=== PATIENT | male | born 1985 | race Caucasian/White ===

== ENCOUNTER 2017-04-04 01:51 | Emergency (ER) | payer MEDICAID, OTHER ==
[~2017-04-04] VITALS: Ht 182.9 cm; Wt 95.0 kg
[2017-04-04 01:55] VITALS: Ht 182.9 cm; Wt 95.0 kg
[2017-04-04] MEDS ORDERED: KETOROLAC 60 MG INJ IM STA (02:51)
[2017-04-04] MEDS ORDERED: CLINDAMYCIN 300 MG INJ IM ONE (03:00)
--- NOTE | 2017-04-04 03:06 | ERD ---
ER Documentation Chief Complaint Chief Complaint c/o bilateral leg abcess with swelling and drainage x 2 wks. HPI 31-year-old male presents here to emergency department for complaints of bilateral lower leg redness and swelling that started 2 weeks ago. Patient uses drugs, has history of MRSA infection. Patient's complaint of pain throbbing pain,6/10 scale, as was upon touching the area. Patient denies any fever chills. Patient denies any numbness or tingling. Patient admits to using drugs. ROS All systems reviewed and are negative except as per history of present illness. Medications Home Meds Reported Medications [none] Unknown Strength No Conflict Check 04/04/17 Allergies Allergies: Coded Allergies: No Known Drug Allergy (Verified Allergy, Unknown, 03/29/13) PMhx/Soc History of Surgery: No Anesthesia Reaction: No Hx Neurological Disorder: No Hx Respiratory Disorders: Yes (CHILDHOOD ASTHMA) Hx Cardiac Disorders: No Hx Psychiatric Problems: No Hx Miscellaneous Medical Probl: No Hx Alcohol Use: No Hx Substance Use: Yes (HEROIN; 03/29/13 APPROX 1700) Hx Tobacco Use: Yes (APPROX 1 PACK/DAY) Smoking Status: Current every day smoker FmHx Family History: No coronary disease, No diabetes, No other Physical Exam Vitals Vital Signs Date Time Temp Pulse Resp B/P Pulse Ox O2 Delivery O2 Flow Rate FiO2 04/04/17 01:55 96.0 121 18 117/71 99 Physical Exam GENERAL: The patient is well developed and appropriate for usual state of health, in no apparent distress. CHEST: Clear to auscultation bilaterally. There are no rales, wheezes or rhonchi. HEART: Regular rate and rhythm. No murmurs, clicks, rubs or gallops. No S3 or S4. ABDOMEN: Soft, nontender and nondistended. Good bowel sounds. No rebound or guarding. No gross peritonitis. No gross organomegaly or masses. No Belle sign or McBurney point tenderness. BACK: No midline or flank tenderness. EXTREMITIES: Redness swelling and induration of bilateral lower extremity. No fluctuance noted equal pulses bilaterally. There is no peripheral clubbing, cyanosis or edema. No focal swelling or erythema. Full range of motion. Grossly neurovascularly intact. NEURO: Alert and oriented. Cranial nerves 2-12 intact. Motor strength in all 4 extremities with 5/5 strength. Sensation grossly intact. Normal speech and gait. SKIN: There is no apparent rash or petechia. The skin is warm and dry. HEMATOLOGIC AND LYMPHATIC: There is no evidence of excessive bruising or lymphedema. No gross cervical, axillary, or inguinal lymphadenopathy. Results 24 hrs Current Medications Medications (Trade) Dose Ordered Sig/Chuy Route PRN Reason Start Time Stop Time Status Last Admin Dose Admin Ketorolac Tromethamine (Toradol) 60 mg ONCE STAT IM 04/04/17 02:51 04/04/17 02:52 DC Clindamycin Phosphate (Cleocin) 600 mg ONCE ONCE IM 04/04/17 03:00 04/04/17 03:01 DC IM clindamycin and Toradol was given here in the emergency department, tolerated medication well. Procedures/MDM Medical decision making: Patient symptoms was likely is consistent with cellulitis. No symptoms of neurovascular compromise at this time. Low suspicion for DVT. No suspicion for any sepsis at this time, patient appears once hemodynamically stable. Prescription was given for Clindamycin, Ibuprofen norco is advised to follow-up with primary care doctor in 2-3 days for reevaluation of symptoms. Patient was advised to return to emergency department for any worsening symptoms. Disposition: Home. Stable. Departure Diagnosis: Primary Impression: Cellulitis Site of cellulitis: extremity Site of cellulitis of extremity: lower extremity Laterality: unspecified laterality Qualified Code: L03.119 - Cellulitis of lower extremity, unspecified laterality Condition: Stable Patient Instructions: Cellulitis OMAR BLANCO NP Apr 04, 2017 03:06
[2017-04-04] MEDS ORDERED: CLIN-73 PO (03:09)
[2017-04-04] MEDS ORDERED: HYDR-906 PO (03:09)
[2017-04-04] MEDS ORDERED: IBUP-1542 PO (03:09)
== END 2017-04-04 03:41 | disposition home or self-care (01) ==
LOC: FTE 01:51
DX: L03.116 Cellulitis of left lower limb (principal); L03.115 Cellulitis of right lower limb; F17.210 Nicotine dependence, cigarettes, uncomplicated
CPT/HCPCS: 96372; J1885; Z7502; Z7610